=== PATIENT | female | born 1980 | race Caucasian/White ===

== ENCOUNTER 2025-08-06 09:53 | Emergency (ER) | payer BC, SELFPAY ==
[2025-08-06 10:59] VITALS: BMI 39.6
--- NOTE | 2025-08-06 11:15 | EDRN ---
Received patient on stretcher. Patient is AAOx4. Patient stated that she's going through opiate withdrawal and last took Oxy yesterday. Patient stated that she is unable to go into an inpatient program but would like to go to outpatient program if
possible. Patient stated that no one knows about her addiction.
--- NOTE | 2025-08-06 11:17 | ED.GENMED ---
History of Present Illness
General
Chief Complaint: Withdrawal Symptoms
Source: patient
Time Seen by Provider: 08/06/25 10:49
History of Present Illness
History of Present Illness:
45-year-old female with past medical history of substance abuse, noting she uses approximately 30 mg of oxycodone 3 times a day, presenting to the ER stating she does not want to continue abusing opiate medications. She reports that this all
started as a regular prescription from a traumatic injury she had years ago and over time she has been buying the pills off the streets near [place]. Patient states that this is something that she has been dealing with a while and feels
some shame where she cannot even discuss it with her . She has attempted to stop in the past but with no success. She states that this time she notes that she does not have any other options. Currently no physical complaints. Last use was
yesterday. patient stating she currently does not have the means to go to an inpatient facility so is looking for more outpatient based therapy. Denies any SI/HI.
Past History
Past History
ED Past Medical History: Psychiatric
ED Past Surgical History: Gynecological
Social History
Tobacco: Non-smoker
Alcohol: None
Drug: Narcotics
Personal:
Living: with family
Employment: Employed
Review of Systems
Review of Systems
All Other Systems: ROS reviewed and negative except as documented in HPI and ROS
Phy Exam
Physical Exam
Physical Exam:
GENERAL: Alert , in no apparent distress
HEAD: Normocephalic atraumatic
EYE: conjunctiva clear
NECK: Supple
ENT: o/p clr, mmm.
CARDIAC: Regular rate and rhythm
LUNGS: Clear breath sounds bilaterally, no acute respiratory distress, no wheezes/rales/rhonchi
NEUROLOGICAL: Alert and oriented
SKIN: Warm and dry, skin intact.
MUSCULOSKELETAL: well perfused.
PSYCH: Normal and appropriate interaction.
Scores
Heart Failure Risk
Heart Failure Risk Score: Not Applicable
Heart Score for Chest Pain Patients
STEMI patient?: Not applicable
Withdrawal Assessment of Alcohol
Withdrawal Assessment Completed?: Not applicable
Course
Orders/Labs/Results
Orders:
Orders
08/06/25 11:16
Crisis Consult Urgent
Reason for Consult: outpatient therapies
Vital Signs
Initial and Last Documented VS:
Initial Vital Signs
Temp Pulse Resp Pulse Ox
98.5 F 88 16 98
08/06/25 09:55 08/06/25 09:55 08/06/25 09:55 08/06/25 09:55
Last Documented Vital Signs
Temp Pulse Resp BP Pulse Ox
98.4 F 79 18 150/106 97
08/06/25 12:15 08/06/25 12:15 08/06/25 12:15 08/06/25 12:15 08/06/25 12:15
MDM/Problems Addressed
Differential Diagnosis Includes:
Opioid abuse/addiction
No current symptoms to suggest significant withdrawal
MDM/Problems Addressed:
45-year-old female presenting to the ER for evaluation with concerns for opioid addiction that has been ongoing for years. She estimates she uses 30 mg 3 times a day for many years. Currently declining inpatient based therapies but is looking for
outpatient based program as well as medication to help her through withdrawal. Will work with pharmacy to get proper Suboxone dosing. Will discuss with [facility] for outpatient based therapy and initially patient was agreeable to [facility]
patient based therapy but then declined this. Anticipate discharge home.
Chronic conditions affecting care: Psychiatric illness
Acute Exacerbation and/or Progression of Chronic Illness: Psychiatric illness
*Pulse Oximetry
SaO2: 98
Oxygen Mode of Delivery: Room air
Patient hypoxic: no
*Critical Care Note
Total Time (30-74mins, 75-104mins- exclusive of procedures): Not Applicable
Patient Management
Escalation/DeEscalation of care consider admission/obs:
Patient feels comfortable with the treatment plan in place. Prescriptions for Suboxone were sent to pharmacy. Patient aware of return precautions.
ED Attending Note
-
Portions of this chart may have been created with voice recognition software.� Occasional wrong word or��sound alike� substitutions may have occurred due to the inherent limitations of voice recognition software.
Discharge Plan
Departure
Patient Disposition: Home (Routine Discharge)
Date of Disposition: 08/06/25
Time of Disposition: 11:40
Patient with high blood pressure during this ER visit?: No
Discharge Problem:
Opiate addiction
Instructions: Drug Misuse and Addiction (DC)
Prescriptions:
New
buprenorphine-naloxone [Suboxone] 4-1 mg film
1 film buccal Q2H PRN (Reason: Pain) Qty: 30 0RF
Interventions
Interventions:
*Risk Screen - Suicide Last Done: 08/06/25 09:55
*General Assessment Last Done: 08/06/25 09:55
*Neglect/Abuse Screening Last Done: 08/06/25 09:55
*ED- Fall Risk Assessment Last Done: 08/06/25 10:59
*ED COVID-19 Vaccine History Last Done: 08/06/25 10:59
*ED Influenza Vaccine History Last Done: 08/06/25 10:59
*Nursing Disposition Last Done: 08/06/25 12:15
ED- Neurological Assessment Last Done: 08/06/25 10:59
ED-Psychological Assessment Last Done: 08/06/25 10:59
Discharge Date and Time
Discharge Date/Time: 08/06/25 12:16
Print Language: EMIRATI
[2025-08-06 12:00] VITALS: BP 121/102
[2025-08-06 12:02] VITALS: BP 150/106
--- NOTE | 2025-08-06 12:14 | EDRN ---
Reviewed discharge instructions with patient. Verbalized understanding. Ambulated with steady gait to the lobby.
[2025-08-06 12:15] VITALS: BP 150/106
== END 2025-08-06 12:16 | disposition home or self-care (01) ==
LOC: EMR 09:53
PROVIDERS: EMERGENCY PHYSICIAN Emergency Medicine
DX: F11.20 Opioid dependence, uncomplicated (principal)
CPT/HCPCS: 99283